=== PATIENT | female | born 1985 | race Caucasian/White ===

== ENCOUNTER 2019-03-21 13:47 | Emergency (ER) | payer SELFPAY ==
[~2019-03-21] VITALS: Ht 157.5 cm; Wt 54.5 kg
[2019-03-21] MEDS ORDERED: IBUP-1114 PO (14:01)
[2019-03-21] MEDS ORDERED: ACETAMINOPHEN TAB 650MG DOSE (2X325MG) PO ONE (14:30)
--- NOTE | 2019-03-21 15:08 | REP ---
Chest two views HISTORY: Cough Comparison: None A linear density is present in the left lower lobe consistent with scar. The right lung is clear. The heart is normal in size. The pulmonary vasculature is normal in appearance. The bony structure is intact. IMPRESSION: No acute disease. Electronically Signed by Femi Dick MD 03/21/2019 02:59 P
[2019-03-21] MEDS ORDERED: AZIT-12 PO (15:33)
[2019-03-21] MEDS ORDERED: PRED20TA PO (15:33)
[2019-03-21 15:41] VITALS: BP 113/63
== END 2019-03-21 15:51 | disposition home or self-care (01) ==
LOC: M ED 13:47
DX: R07.1 Chest pain on breathing (principal); R05 Cough; M62.838 Other muscle spasm; Z87.891 Personal history of nicotine dependence